=== PATIENT | female | born 1960 | race Caucasian/White ===

== ENCOUNTER 2025-03-28 15:27 | Inpatient (IN) | payer OTHER ==
[~2025-03-28] VITALS: Ht 162.6 cm; Wt 63.5 kg
[2025-03-28] MEDS: ONDANSETRON HCL/PF 4 MG/2 ML VIAL IVP ONE (18:30)
[2025-03-28 18:58] LABS: BASOPHILS # (AUTO) 0.1 K/uL (0.0-0.2); BASOPHILS % (AUTO) 0.5 % (0.0-2.0); EOSINOPHILS # (AUTO) 2.4 K/uL (0.0-0.7); EOSINOPHILS % (AUTO) 21.1 % (0.0-6.0); HEMATOCRIT 31 % (33-45); HEMOGLOBIN 9.9 g/dL (11.5-14.8); LYMPHOCYTES # (AUTO) 0.6 K/uL (0.8-4.8); LYMPHOCYTES % (AUTO) 5.5 % (20.0-44.0); MEAN CORPUSCULAR HEMOGLOBIN 31 PG (26.0-33.0); MEAN CORPUSCULAR HGB CONC 32 g/dl (31.0-36.0); MEAN CORPUSCULAR VOLUME 96 fL (82-100); MONOCYTES % (AUTO) 9.2 % (2.0-12.0); NEUTROPHILS # (AUTO) 7.2 K/uL (1.8-8.9); NEUTROPHILS % (AUTO) 63.7 % (43.0-81.0); PLATELET COUNT (AUTO) 451 K/uL (150-450); RED BLOOD CELL COUNT(AUTO) 3.19 MIL/uL (4.0-5.2); RED CELL DISTRIBUTION WIDTH 14.8 % (11.5-15.0); WHITE BLOOD COUNT (AUTO) 11.4 K/uL (4.3-11.0)
[2025-03-28 19:08] LABS: CALCIUM, SERUM 8.2 mg/dL (8.5-10.1); CREATININE 0.7 mg/dL (0.6-1.3); POTASSIUM 3.5 mmol/L (3.5-5.1)
[2025-03-28 19:11] LABS: INR 1.01 (0.91-1.10); PARTIAL THROMBOPLASTIN TIME 26.5 SEC (24.3-34.3); PROTHROMBIN TIME 10.4 SECS (9.2-11.1)
[2025-03-28 19:15] LABS: ALBUMIN 2.4 g/dL (3.4-5.0); BILIRUBIN,TOTAL 0.4 mg/dL (0.2-1.0)
[2025-03-28] MEDS ORDERED: ONDANSETRON HCL/PF 4 MG/2 ML VIAL ONE (19:43)
[2025-03-28] MEDS ORDERED: MORPHINE SULFATE INJ 2 MG/ML DISP.SYRIN ONE (19:43)
[2025-03-28] MEDS: MORPHINE SULFATE INJ 2 MG/ML DISP.SYRIN IV ONE (19:50)
[2025-03-28] MEDS ORDERED: PERMETHRIN 5% CRM 60 GM TUBE TP ONE ×2 (21:56→22:30)
[2025-03-28 22:00] VITALS: BP 98/50; TEMP 98.6; O2SAT 93
[2025-03-28] MEDS ORDERED: Z GUARD REMEDY 4 OZ OINT TP PRN (22:30)
[2025-03-28] MEDS ORDERED: MAGNESIUM HYDROXIDE 30 ML UDC PO PRN (22:30)
[2025-03-28] MEDS ORDERED: MAG HYDROX/AL HYDROX/SIMETH 30 ML UDC PO PRN (22:30)
[2025-03-28] MEDS ORDERED: ZOLPIDEM TARTRATE 5 MG TABLET PO PRN (22:30)
[2025-03-28] MEDS: PERMETHRIN 5% CRM 60 GM TUBE TP ONE (22:30)
[2025-03-28] MEDS ORDERED: ONDANSETRON HCL/PF 4 MG/2 ML VIAL IVP PRN (22:30)
[2025-03-28] MEDS: ENOXAPARIN SODIUM 40 MG/0.4 ML DISP.SYRIN SQ SCH (22:30)
[2025-03-29] MEDS: IV D5/0.45 NACL 1,000 ML IV PRN (01:02)
[2025-03-29 07:46] LABS: BASOPHILS # (AUTO) 0.1 K/uL (0.0-0.2); BASOPHILS % (AUTO) 1.2 % (0.0-2.0); EOSINOPHILS # (AUTO) 2.5 K/uL (0.0-0.7); EOSINOPHILS % (AUTO) 21.9 % (0.0-6.0); HEMATOCRIT 30 % (33-45); HEMOGLOBIN 9.5 g/dL (11.5-14.8); LYMPHOCYTES # (AUTO) 0.6 K/uL (0.8-4.8); LYMPHOCYTES % (AUTO) 5.1 % (20.0-44.0); MEAN CORPUSCULAR HEMOGLOBIN 30 PG (26.0-33.0); MEAN CORPUSCULAR HGB CONC 32 g/dl (31.0-36.0); MEAN CORPUSCULAR VOLUME 96 fL (82-100); MONOCYTES # (AUTO) 0.9 K/uL (0.1-1.30); MONOCYTES % (AUTO) 7.9 % (2.0-12.0); NEUTROPHILS # (AUTO) 7.3 K/uL (1.8-8.9); NEUTROPHILS % (AUTO) 63.9 % (43.0-81.0); PLATELET COUNT (AUTO) 460 K/uL (150-450); RED BLOOD CELL COUNT(AUTO) 3.13 MIL/uL (4.0-5.2); RED CELL DISTRIBUTION WIDTH 14.7 % (11.5-15.0); WHITE BLOOD COUNT (AUTO) 11.4 K/uL (4.3-11.0)
[2025-03-29 07:48] LABS: INR 1.05 (0.91-1.10); PARTIAL THROMBOPLASTIN TIME 28.1 SEC (24.3-34.3); PROTHROMBIN TIME 11.1 SECS (9.2-11.1)
[2025-03-29] MEDS: PERMETHRIN 59 ML BOTTLE TP ONE (08:00)
[2025-03-29 08:04] LABS: THYROID STIMULATING HORMONE 0.87 uIU/mL (0.358-3.74)
[2025-03-29 08:07] LABS: CALCIUM, SERUM 8.1 mg/dL (8.5-10.1); CREATININE 0.7 mg/dL (0.6-1.3); PHOSPHORUS 3.8 mg/dL (2.5-4.9); POTASSIUM 3.7 mmol/L (3.5-5.1)
[2025-03-29] MEDS: PANTOPRAZOLE 40 MG TABLET.DR PO SCH (09:12)
[2025-03-29] MEDS ORDERED: BUPIVACAINE 0.5 % PF 150 MG/30 ML VIAL ONE (11:36)
[2025-03-29] MEDS ORDERED: LIDOCAINE 2% JEL UROJET 10 ML MM ONE (12:41)
[2025-03-29] MEDS ORDERED: KETAMINE HCL (500MG/10ML) 50 MG/ML VIAL ONE (12:42)
[2025-03-29] MEDS ORDERED: FAMOTIDINE/PF INJ 20 MG/2 ML VIAL IV ONE (12:42)
[2025-03-29] MEDS ORDERED: MIDAZOLAM HCL 2 MG/2ML VIAL ONE (12:42)
[2025-03-29] MEDS ORDERED: FENTANYL PF 100MCG/2ML AMPUL ONE (12:42)
[2025-03-29 13:57] LABS: ANISOCYTOSIS 1+; EOSINOPHILS % (MANUAL) 16 % (0-4); LYMPHOCYTES % (MANUAL) 5 % (16-48); MONOCYTES % (MANUAL) 7 % (0-11.0); NEUTROPHILS % (MANUAL) 72 (42-76); PLATELET ESTIMATE INCREASED
[2025-03-29] MEDS ORDERED: ANESTHESIA TRAY IN PYXIS 1 EA TRAY MC ONE (14:37)
[2025-03-29] MEDS ORDERED: TRANEXAMIC ACID 1,000 MG/10 ML VIAL ONE (14:47)
[2025-03-29 20:00] VITALS: BP 116/58; TEMP 98.4; O2SAT 94
[2025-03-29] MEDS: CEFAZOLIN 2 GM in IV D5W 100 ML IV SCH (21:14)
[2025-03-30 07:00] VITALS: BP 113/53; TEMP 98.1; O2SAT 96
[2025-03-30 08:13] LABS: CALCIUM, SERUM 8.1 mg/dL (8.5-10.1); CREATININE 0.6 mg/dL (0.6-1.3); POTASSIUM 3.7 mmol/L (3.5-5.1)
[2025-03-30] MEDS: ACETAMINOPHEN 325 MG TABLET PO PRN (09:51)
[2025-03-30 16:00] VITALS: BP 106/50; TEMP 98.2; O2SAT 99
[2025-03-30 16:22] LABS: FERRITIN 37 ng/mL (8-388); IRON, SERUM 15 ug/dl (50-175); TOTAL IRON BINDING CAPACITY 259 ug/dl (250-450)
[2025-03-30] MEDS: ENOXAPARIN SODIUM 40 MG/0.4 ML DISP.SYRIN SQ SCH (18:07)
[2025-03-30 20:00] VITALS: BP_SYST 111; BP_DIAS 48; BP_DIAS 58; TEMP 98.2; O2SAT 94
[2025-03-31 08:00] VITALS: BP 111/57; TEMP 97.7; O2SAT 98
[2025-03-31] MEDS ORDERED: ENOX40DI SQ (08:59)
== END 2025-03-31 17:59 | DRG 308 ==
LOC: ER 15:30 → MED 20:00
PROVIDERS: ADMIT Student in an Organized Health Care Education/Training Program; ATTEND Student in an Organized Health Care Education/Training Program
PROC: 0QH606Z Insertion of Intramedullary Internal Fixation Device into Right Upper Femur, Open Approach (ICD-10-PCS; principal; 2025-03-29 13:00)
DX: S72.144A Nondisplaced intertrochanteric fracture of right femur, initial encounter for closed fracture (principal); E44.0 Moderate protein-calorie malnutrition; L97.521 Non-pressure chronic ulcer of other part of left foot limited to breakdown of skin; B85.1 Pediculosis due to Pediculus humanus corporis; B35.1 Tinea unguium; D64.9 Anemia, unspecified; D75.839 Thrombocytosis, unspecified; B85.2 Pediculosis, unspecified; S72.121A Displaced fracture of lesser trochanter of right femur, initial encounter for closed fracture; W17.89XA Other fall from one level to another, initial encounter; Y92.488 Other paved roadways as the place of occurrence of the external cause; S80.862A Insect bite (nonvenomous), left lower leg, initial encounter; S80.861A Insect bite (nonvenomous), right lower leg, initial encounter; W57.XXXA Bitten or stung by nonvenomous insect and other nonvenomous arthropods, initial encounter; Y93.9 Activity, unspecified; Y92.410 Unspecified street and highway as the place of occurrence of the external cause; Z59.02 Unsheltered homelessness; L60.3 Nail dystrophy; D72.829 Elevated white blood cell count, unspecified; Z87.828 Personal history of other (healed) physical injury and trauma
CPT/HCPCS: 36415; 71045-TC; 72170-TC; 73502; 73552; 73590-TC; 73630-TC; 80048-TC; 80053-TC; 80061-TC; 82728-TC; 83540-TC; 83735-TC; 83880; 84100-TC; 84155; 84165; 84443-TC; 85025-TC; 85610-TC; 85730-TC; 86850-TC; 97110-TC; 97530-TC; 97535-TC; 98960; A4223; A6213; G0378; J0690; J1100; J1308; J1650; J1885; J2250; J2270; J2405; J2704; J3010; J3490; J7030; J7040; J7050; J7060